=== PATIENT | female | born 1970 | race Caucasian/White ===

== ENCOUNTER 2017-06-22 02:25 | Inpatient (IN) | payer OTHER ==
[~2017-06-22] VITALS: Ht 162.6 cm; Wt 102.0 kg
[2017-06-22 02:34] VITALS: Ht 162.6 cm; Wt 102.0 kg
[2017-06-22 08:05] LABS: BASOPHIL % 0.2 % (0-2); PLATELET COUNT 305 x10^3mcL (130-400); RED CELL DISTRIBUTION WIDTH 13.5 % (11.5-14.5)
[2017-06-22 08:09] LABS: CARBON DIOXIDE 24.2 mmol/L (21-32); CHLORIDE SERUM 102 mmol/L (98-107); CREATININE SERUM 0.7 mg/dL (0.6-1.0); GFR1 > 60 mL/min; GLUCOSE SERUM 104 mg/dL (74-106); POTASSIUM SERUM 3.9 mmol/L (3.5-5.1); SODIUM SERUM 137 mmol/L (136-145)
[2017-06-22 08:10] LABS: microscopic required? NO
[2017-06-22 08:14] LABS: ALBUMIN 3.4 g/dL (3.4-5.0); ALKALINE PHOSPHATASE 65 U/L (46-116); ALT/SGPT 18 U/L (14-59); AST/SGOT 8 U/L (15-37); CHOLESTEROL 191 mg/dL (<200); LIPASE 124 IU/L (73-393); TOTAL PROTEIN, SERUM 7.5 g/dL (6.4-8.2); TRIGLYCERIDES 132 mg/dL (<150)
[2017-06-22 08:15] LABS: CHOLESTEROL/HDL RATIO 2.7; HDL CHOLESTEROL 72 mg/dL (40-60)
[2017-06-22 08:18] LABS: FREE T4 0.94 ng/dL (0.76-1.46); FREE THYROXINE INDEX 2.5 ug/dL (1.4-4.5); T4(THYROXINE) 9.7 ug/dL (4.7-13.3)
[2017-06-22 08:20] LABS: T3 TOTAL 0.97 ng/mL
[2017-06-22 08:21] LABS: UA SPECIFIC GRAVITY 1.015 (1.005-1.035); urine erythrocyte NEGATIVE (NEGATIVE)
[2017-06-22] MEDS ORDERED: NOR10T PO (09:01)
[2017-06-22 09:41] LABS: MAGNESIUM 1.9 mg/dL (1.8-2.4)
[2017-06-22 14:52] VITALS: BP 152/65
[2017-06-22 16:47] VITALS: BP 102/56
[2017-06-22 21:42] VITALS: BP 106/53
[2017-06-23 00:22] LABS: AMPHETAMINE QUAL UR NONE DETECTED (NEG <=1000)
[2017-06-23 06:13] VITALS: BP 103/56
[2017-06-23 07:15] LABS: BASOPHIL % 0.3 % (0-2); PLATELET COUNT 245 x10^3mcL (130-400); RED CELL DISTRIBUTION WIDTH 13.3 % (11.5-14.5)
[2017-06-23 07:20] LABS: CALCIUM 8.1 mg/dL (8.5-10.1); CARBON DIOXIDE 28.6 mmol/L (21-32); CHLORIDE SERUM 103 mmol/L (98-107); CREATININE SERUM 0.7 mg/dL (0.6-1.0); GFR1 > 60 mL/min; GLUCOSE SERUM 79 mg/dL (74-106); MAGNESIUM 2.2 mg/dL (1.8-2.4); PHOSPHOROUS 3.5 mg/dL (2.5-4.9); POTASSIUM SERUM 3.6 mmol/L (3.5-5.1); SODIUM SERUM 139 mmol/L (136-145)
[2017-06-23 09:39] VITALS: BP 102/57
[2017-06-23 13:15] VITALS: BP 105/55
[2017-06-23 17:15] VITALS: BP 107/60
[2017-06-23 21:29] VITALS: BP 109/46
[2017-06-24 06:32] VITALS: BP 96/54
[2017-06-24 07:23] LABS: BASOPHIL % 0.4 % (0-2); PLATELET COUNT 266 x10^3mcL (130-400); RED CELL DISTRIBUTION WIDTH 13.4 % (11.5-14.5)
[2017-06-24 07:52] LABS: CALCIUM 8.5 mg/dL (8.5-10.1); CARBON DIOXIDE 26.7 mmol/L (21-32); CHLORIDE SERUM 104 mmol/L (98-107); CREATININE SERUM 0.6 mg/dL (0.6-1.0); GFR1 > 60 mL/min; GLUCOSE SERUM 87 mg/dL (74-106); MAGNESIUM 2.2 mg/dL (1.8-2.4); PHOSPHOROUS 3.2 mg/dL (2.5-4.9); POTASSIUM SERUM 3.8 mmol/L (3.5-5.1); SODIUM SERUM 139 mmol/L (136-145)
[2017-06-24 10:17] VITALS: BP 105/54
[2017-06-24] MEDS ORDERED: FLA500 PO (10:55)
[2017-06-24] MEDS ORDERED: APAP/HYDROCODON1 T13 PO (10:56)
[2017-06-24] MEDS ORDERED: ESGIC CAPSULE1 EACH PO (10:57)
[2017-06-24] MEDS ORDERED: COL100 PO (10:58)
[2017-06-24] MEDS ORDERED: NEU300 PO (10:58)
[2017-06-24] MEDS ORDERED: CIPRO500 MG PO (11:01)
[2017-06-24] MEDS ORDERED: LAC PO (11:21)
[2017-06-24] MEDS ORDERED: ZOFRAN8 MG PO (11:22)
[2017-06-24 13:30] VITALS: BP 105/54
== END 2017-06-24 14:43 | disposition home or self-care (01) | DRG 392 ==
LOC: ED 02:25 → DU 08:40 → MU 06-23 19:42
PROVIDERS: Specialist; Student in an Organized Health Care Education/Training Program
DX: K57.92 Diverticulitis of intestine, part unspecified, without perforation or abscess without bleeding (principal); J98.11 Atelectasis; Z90.49 Acquired absence of other specified parts of digestive tract; Z90.710 Acquired absence of both cervix and uterus; E78.5 Hyperlipidemia, unspecified; R00.0 Tachycardia, unspecified
CPT/HCPCS: 83880; 84439; J0696; J0744; J1170; J1885; J2405; J3010; J3490; J7030

== ENCOUNTER 2019-03-12 12:17 | Emergency (ER) | payer OTHER ==
[~2019-03-12] VITALS: Ht 162.6 cm; Wt 86.2 kg
[~2019-03-12 12:17] MED LIST: APAP/HYDROCODON1 T13 PO; CIPRO500 MG PO; COL100 PO; ESGIC CAPSULE1 EACH PO; FLA500 PO; LAC PO; NEU300 PO; NOR10T PO; ZOFRAN8 MG PO
[2019-03-12 12:23] VITALS: Ht 162.6 cm; Wt 86.2 kg
[2019-03-12 15:11] VITALS: BP 118/68
== END 2019-03-12 15:11 | disposition home or self-care (01) ==
LOC: ED 12:17
DX: G89.29 Other chronic pain (principal); M54.9 Dorsalgia, unspecified; Z76.0 Encounter for issue of repeat prescription; Z98.890 Other specified postprocedural states; Z90.49 Acquired absence of other specified parts of digestive tract; Z90.712 Acquired absence of cervix with remaining uterus
CPT/HCPCS: J1885